=== PATIENT | female | born 1945 | race Caucasian/White ===

== ENCOUNTER → 2019-10-11 12:47 | Outpatient (CLI) | payer MEDICARE, OTHER, SELFPAY ==
--- NOTE | 2019-10-11 12:48 | MR_ITS ---
PROCEDURE: MR HEAD/BRAIN WO CON CLINICAL INDICATION: memory loss, amnesia MEMORY LOSS [id number]. NO PRIOR. COMPARISON: No exams were available for comparison TECHNIQUE: Routine multiplanar multi echo sequences are performed without gadolinium enhancement. FINDINGS: No midline shift, mass effect, intracranial hemorrhage, hydrocephalus, acute infarction. The cerebellopontine angles, cerebellum, and brainstem an unremarkable. There is mild generalized atrophy. Nonspecific periventricular and subcortical T2 white matter hyperintensities are consistent with ischemic gliotic change from microvascular disease. These areas do not show restricted diffusion. There is mild prominence of the lateral ventricles which is felt be related to ex vacuo dilatation. The pituitary, optic chiasm, corpus callosum, and craniocervical junction have an unremarkable appearance. No mastoid effusion or sinus air-fluid level. IMPRESSION: 1. No acute intracranial findings. 2. Senescent changes atrophy with periventricular ischemic gliotic change Dictated b Pritesh Grissom MD 10/12/2019 14:15 Pritesh Grissom MD in [place] 10/12/2019 14:15
== END ==
PROVIDERS: PCP Family Medicine; Visit Provider Specialist
DX: E78.5 Hyperlipidemia, unspecified (principal); G93.40 Encephalopathy, unspecified; I10 Essential (primary) hypertension; R41.3 Other amnesia
CPT/HCPCS: 70551

== ENCOUNTER → 2019-10-27 08:07 | Outpatient (CLI) | payer MEDICARE, OTHER, SELFPAY ==
[2019-10-27 08:11] LABS: MANUAL DIFFERENTIAL MANUAL DIFFERENTIAL (MANUAL DIFF)
[2019-10-27 09:20] LABS: Basophils # 0.1 K/mm3 (0-0.2); Basophils % 0.8 % (0.1-2.0); Eosinophils # 0.3 K/mm3 (0.0-0.4); Eosinophils % 3.5 % (0.1-12.0); Hematocrit 41.6 % (37.0-47.0); Hemoglobin 14.2 g/dL (12.2-16.2); Lymphocytes # 2.3 K/mm3 (0.7-4.5); Lymphocytes % 28.4 % (10-50); Mean Corpuscular HGB Conc 34.2 g/dL (31.8-35.4); Mean Corpuscular Hemoglobin 30.3 pg (27.0-31.2); Mean Corpuscular Volume 88.4 fl (81-99); Mean Platelet Volume 7.2 fl (7.4-10.4); Monocytes # 0.5 K/mm3 (0.1-1.0); Monocytes % 5.9 % (1.7-9.3); Neutrophils % 61.3 % (37.0-80.0); Platelet Count 410 K/mm3 (142-424); Red Cell Distribution Width 13.2 % (11.5-17.5); White Blood Count 8.1 K/mm3 (4.8-10.8)
[2019-10-27 09:22] LABS: Chloride 101 mmol/L (98-107); Potassium 4.3 mmoL/L (3.5-5.1); Sodium 140 mmol/L (136-145)
[2019-10-27 10:11] LABS: Alanine Aminotransferase 13 U/L (12-78); Albumin Level 4.1 g/dl (3.5-5.0); Albumin/Globulin Ratio 1.2 (1.1-1.8); Alkaline Phosphatase 101 U/L (38-126); Anion Gap 12.3 mEq/L (5-15); Aspartate Amino Transferase 29 U/L (14-36); Bilirubin,Total 0.6 mg/dl (0.2-1.3); Blood Urea Nitrogen 13 mg/dl (7-17); Calcium 9.8 mg/dl (8.4-10.2); Carbon Dioxide 31 mmol/L (22.0-30.0); Estimated Glomerular Filt Rate 70 ml/min (>60); GFR (African American) 85 ML/MIN (>60); Globulin 3.4 g/dL (1.3-3.2); Glucose 96 mg/dl (74-100); Total Protein,Serum 7.5 g/dl (6.3-8.2)
[2019-10-27 10:37] LABS: Eosinophils % 2 % (0-3); Lymphocytes % 36 % (10-50); Monocytes % 3 % (2-9); Neutrophils % 59 % (42-76); Total Cells Counted 100
[2019-10-27 10:38] LABS: Platelet Estimate Normal; RBC Morphology Normal
[2019-10-27 11:18] LABS: Folate 9.78 ng/mL; Vitamin B12 309 pg/mL
[2019-10-27 11:46] LABS: Erythrocyte Sedimentation Rate 49 mm/hr (0-30)
[2019-10-28 13:11] LABS: Rapid Plasma Reagin Ab Titer Non Reactive (NonRea<1:1)
[2019-10-30 11:59] LABS: Anti-Centromere B Antibodies <0.2 AI (0.0-0.9); Anti-Jo-1 <0.2 AI (0.0-0.9); Anti-Smith Antibody <0.2 AI (0.0-0.9); Antichromatin Antibodies <0.2 AI (0.0-0.9); Antiscleroderma-70 Antibodies <0.2 AI (0.0-0.9); RNP Antibodies <0.2 AI (0.0-0.9); Sjogren's Anti-SS-A <0.2 AI (0.0-0.9); Sjogren's Anti-SS-B <0.2 AI (0.0-0.9)
[2019-10-30 13:20] LABS: Anti-DNA (DS) Ab Qn <1 IU/mL (0-9)
== END ==
PROVIDERS: Visit Provider Specialist
DX: E78.5 Hyperlipidemia, unspecified (principal); G93.40 Encephalopathy, unspecified; I10 Essential (primary) hypertension; R41.3 Other amnesia
CPT/HCPCS: 36415; 80053; 82607; 82746; 84443; 85007; 85014; 85018; 85048; 85049; 85651; 86225; 86235; 86592

== ENCOUNTER 2021-04-01 14:40 | Emergency (ER) | payer MEDICARE, OTHER, SELFPAY ==
[2021-04-01 14:41] VITALS: BP 142/74; PULSE 68; RESP 16; TEMP 36.9; O2SAT 92; BMI 26.5
--- NOTE | 2021-04-01 14:44 | ECG_ITS ---
APPROVED REPORT Exam: Resting ECG HR:62 bpm ECG Measurements Heart Rate 62 AXES ME 144 P 46 QRSd 85 QRS 49 QT 459 T 42 QTc 464 Conclusion SINUS RHYTHM NORMAL ECG UNCONFIRMED REPORT Electronically signed by : Guanakito Muhammad MD 04/01/2021 16:23:59
--- NOTE | 2021-04-01 14:48 | CT_ITS ---
FINAL REPORT CLINICAL HISTORY: ams FINDINGS: Axial images of the head were obtained without contrast. Coronal reformatted images were also obtained. This study was performed with techniques to keep radiation doses as low as reasonably achievable (ALARA). Individualized dose reduction techniques using automated exposure control or adjustment of mA and/or kV according to the patient's size were employed. There is generalized age-appropriate atrophy. Periventricular low-attenuation areas are seen consistent with moderate chronic ischemic changes. There is ventriculomegaly consistent with the degree of atrophy. There is no evidence of intracranial hemorrhage or mass. There is no evidence of acute infarct. There is no evidence of shift of the midline structures. No skull abnormality is seen on the bone window images. IMPRESSION: Atrophy and moderate periventricular chronic ischemic changes. No acute intracranial abnormality identified. Reviewed, Interpreted and Dictated by Uche Key III, MD Transcribed by Isael Molina Authenticated by Uche Key III, MD on 04/01/2021 04:09:32 PM [facility]
--- NOTE | 2021-04-01 14:58 | HMH.EDGENADL ---
ED Disposition Clinical Impression: Confusion Fatigue Qualifiers: Fatigue type: unspecified Qualified Code(s): R53.83 - Other fatigue Disposition: Home, Self-Care Condition on Discharge: Good Instructions: DI for Altered Mental Status Additional Instructions: follow up pcp, return for worse Referrals: Scott Rosales MD [Primary Care Provider] - - Critical Care Critical Care Time: No Attestation: On 04/01/21, the high probability of a clinically significant, sudden or life threatening deterioration of the following system(s) required my full and direct attention, intervention and personal management. The time I documented below is in addition to time spent performing reported procedures but includes the following listed in this critical care notation. Medical Decision Making - Medical Records Medical records reviewed: Yes: I reviewed the patient's medical records. - Davion Inquiry Pt receiving controlled substance: No Vital Signs: 04/01/21 14:41 Temperature 98.5 F Temperature Source Oral Pulse Rate [Left Radial] 68 Respiratory Rate 16 Blood Pressure [Right Arm] 142/74 H Blood Pressure Mean [Right Arm] 96 Blood Pressure Source [Right Arm] Automatic Cuff Blood Pressure Position [Right Arm] Sitting 02 Sat by Pulse Oximetry 92 L Oxygen Delivery Method Room Air - Lab Data Lab Results 04/01/21 14:47: Urine Color Yellow, Urine Appearance Clear, Urine pH 5.5, Ur Specific [place] 1.025, Urine Protein Trace, Urine Glucose (UA) Negative, Urine Ketones Negative, Urine Blood Negative, Urine Nitrate Negative, Urine Bilirubin Negative, Urine Urobilinogen 1.0, Ur Leukocyte Esterase Negative, Urine RBC None, Urine WBC None, Ur Squamous Epith Cells None, Urine Bacteria Trace 04/01/21 14:47: WBC 7.9, RBC 4.74, Hgb 14.0, Hct 43.0, MCV 90.8, MCH 29.5, MCHC 32.5, RDW 13.3, Plt Count 275, MPV 8.5, Neut % (Auto) 71.0, Lymph % (Auto) 18.3, Callahan % (Auto) 9.5 H, Eos % (Auto) 0.2, Baso % (Auto) 1.1, Neut # (Auto) 5.6, Lymph # (Auto) 1.4, Callahan # (Auto) 0.8, Eos # (Auto) 0.0, Baso # (Auto) 0.1 04/01/21 14:47: Sodium 130 L, Potassium 3.3 L, Chloride 99, Carbon Dioxide 27, Anion Gap 7.3, BUN 31 H, Creatinine 1.20 H, Estimated Creat Clear 44, Estimated GFR 44 L, Est GFR ( Amer) 53 L, Glucose 97, Calcium 8.0 L, Total Bilirubin 0.5, AST 52 H, ALT 23, Alkaline Phosphatase 98, Total Protein 6.4, Albumin 3.3 L, Globulin 3.1, Albumin/Globulin Ratio 1.1 Result diagrams: 04/01/21 14:47 04/01/21 14:47 Orders (Tests/Meds): ED MEDICATIONS Discontinued Medications Generic Name Dose Route Start Last Admin Trade Name Freq PRN Reason Stop Dose Admin Sodium Chloride 1,000 mls @ 999 mls/hr 04/01/21 15:00 04/01/21 15:49 Sod Chlor 0.9% 1000ml Bag IV 04/01/21 16:00 999 mls/hr .Q1H1M JOAQUIN Administration Potassium Chloride 40 meq 04/01/21 16:04 Potassium Chloride 20meq Tab PO 04/01/21 16:05 ONCE ONE Medical Decision Narrative: ekg by me nsr, qrs nml, no st elev General Adult HPI - General Chief complaint: Altered Mental Status Stated complaint: lethargic, no appetite Time Seen by Provider: 04/01/21 14:59 Mode of Arrival: EMS Limitations: Altered Mental Status Description of Symptoms (Recalled from ER Triage Doc. by RN): c/o confusion, lethargic not eating or drinking for a few days per family - History of Present Illness HPI narrative: general weakness and confusion in be several days Radiation: non-radiation Severity: moderate Consistency: constant Relieving factors: none Exacerbating factors: none Associated symptoms: denies other symptoms - Related Data Home Medications Medication Instructions Recorded Confirmed acetaminophen 325 mg capsule 325 mg PO QID PRN 10/04/19 11/11/20 hydrochlorothiazide 12.5 mg capsule 12.5 mg PO DAILY 10/04/19 11/11/20 losartan 100 mg tablet 100 mg PO DAILY 10/04/19 11/11/20 metoprolol succinate 200 mg 200 mg PO DAILY 10/04/19 11/11/20 capsule sprinkl
--- NOTE | 2021-04-01 15:04 | PC.NURSE ---
patient to CT with cardio tech
[2021-04-01 15:15] LABS: Microscopic, Urine URINE MICROSCOPIC (MICROSCOPIC)
[2021-04-01 15:17] LABS: Appearance,Urine CLEAR (Clear); Bilirubin,Urine Negative (Negative); Blood, Urine Negative (Negative); Color,Urine YELLOW (Yellow); Glucose,Urine (UA) Negative (Negative); Ketones,Urine Negative (Negative); Leukocyte Esterase,Urine Negative (Negative); Nitrate,Urine Negative (Negative); PH,Urine 5.5 (5.0-8.5); Protein,Urine TRACE (Negative); Specific Gravity, Urine 1.025 (1.005-1.030)
[2021-04-01 15:18] LABS: Basophils # 0.1 K/mm3 (0-0.2); Basophils % 1.1 % (0.1-2.0); Chloride 99 mmol/L (98-107); Eosinophils % 0.2 % (0.1-12.0); Lymphocytes # 1.4 K/mm3 (0.7-4.5); Lymphocytes % 18.3 % (10-50); Mean Corpuscular HGB Conc 32.5 g/dL (31.8-35.4); Mean Corpuscular Hemoglobin 29.5 pg (27.0-31.2); Mean Corpuscular Volume 90.8 fl (81-99); Mean Platelet Volume 8.5 fl (7.4-10.4); Monocytes # 0.8 K/mm3 (0.1-1.0); Monocytes % 9.5 % (1.7-9.3); Neutrophils # 5.6 K/mm3 (1.8-7.8); Platelet Count 275 K/mm3 (142-424); Potassium 3.3 mmoL/L (3.5-5.1); Red Blood Count 4.74 M/mm3 (4.20-5.40); Red Cell Distribution Width 13.3 % (11.5-17.5); Sodium 130 mmol/L (136-145); White Blood Count 7.9 K/mm3 (4.8-10.8)
[2021-04-01 15:20] LABS: Alanine Aminotransferase 23 U/L (12-78); Aspartate Amino Transferase 52 U/L (14-36); Blood Urea Nitrogen 31 mg/dl (7-17); Creatinine Clearance Estimated 44 mL/min (50-200); Estimated Glomerular Filt Rate 44 ml/min (>60); GFR (African American) 53 ML/MIN (>60)
[2021-04-01 15:21] LABS: Albumin Level 3.3 g/dl (3.5-5.0); Albumin/Globulin Ratio 1.1 (1.1-1.8); Alkaline Phosphatase 98 U/L (38-126); Anion Gap 7.3 mEq/L (5-15); Bilirubin,Total 0.5 mg/dl (0.2-1.3); Carbon Dioxide 27 mmol/L (22.0-30.0); Globulin 3.1 g/dL (1.3-3.2); Glucose 97 mg/dl (74-100); Total Protein,Serum 6.4 g/dl (6.3-8.2)
[2021-04-01 15:38] LABS: Bacteria,Urine Trace /lpf
[2021-04-01 17:59] VITALS: BP 138/71; PULSE 61; RESP 16; TEMP 36.9; O2SAT 94
== END 2021-04-01 18:34 | disposition home or self-care (01) ==
PROVIDERS: Emergency Provider Emergency Medicine; PCP Family Medicine
DX: R53.83 Other fatigue (principal); Z79.899 Other long term (current) drug therapy
CPT/HCPCS: 70450; 80053; 81001; 85025; 93005; 96365; 99283

== ENCOUNTER → 2021-06-18 13:33 | Outpatient (CLI) | payer MEDICARE, OTHER, SELFPAY ==
--- NOTE | 2021-06-18 13:33 | MR_ITS ---
FINAL REPORT CLINICAL HISTORY: encephalopathy best images possible due to patient being very agitated during scan 12ml prohance given FINDINGS: Multiplanar MR imaging of the brain was performed without and with contrast. Motion on many of the images decreases exam sensitivity. There is mild age-appropriate atrophy. Scattered foci of increased T2 signal are seen in the cerebral white matter that have a nonspecific appearance but likely represent moderate chronic ischemic/gliotic changes. There is no evidence of intracranial hemorrhage or mass. There is mild ventriculomegaly. . There is no evidence of shift of the midline structures. No abnormal extra-axial fluid collection is seen. No area of abnormal restricted diffusion is identified. The posterior fossa and brainstem have an unremarkable appearance. No abnormal contrast enhancement is seen. Normal major vessel vascular flow voids are seen. IMPRESSION: Mild ventriculomegaly. Atrophy with moderate chronic ischemic/gliotic changes. No acute intracranial abnormality. Reviewed, Interpreted and Dictated by Uche Key III, MD Transcribed by Isael Molina Authenticated by Uche Key III, MD on 06/18/2021 04:25:02 PM [facility]
--- NOTE | 2021-06-18 13:33 | MR_ITS ---
FINAL REPORT CLINICAL HISTORY: abnormal reflexes, imbalance FINDINGS: Multiplanar MR imaging of the cervical spine was performed without contrast. Motion on many of the images decreases exam sensitivity. On the sagittal T2-weighted images, disc degeneration is seen throughout. There is no evidence of fracture. The vertebral alignment is normal. The cervical spinal cord has an unremarkable appearance without evidence of mass, edema or syrinx. The cervicomedullary junction is normal. C2-3: There is no significant canal stenosis or neural foraminal narrowing. C3-4: An annular bulge is present. There are left uncovertebral osteophytes. There is severe left neural foraminal narrowing. C4-5: There is a disc osteophyte complex with a small central disc protrusion. There is moderate left neural foraminal narrowing. There is mild central canal stenosis with an AP thecal sac diameter of 8 mm. C5-6: There is a disc osteophyte complex with a left foraminal disc protrusion. There is moderate left neural foraminal narrowing. C6-7: There is a disc osteophyte complex with moderate left neural foraminal narrowing. C7-T1: There is no significant canal stenosis or neural foraminal narrowing. T1-T2: There is no significant canal stenosis or neural foraminal narrowing. IMPRESSION: Multilevel degenerative disc disease with areas of neural foraminal narrowing and central canal stenosis as described. Disc protrusions at C4-C5 and C5-C6. Reviewed, Interpreted and Dictated by Uche Key III, MD Transcribed by Isael Molina Authenticated by Uche Key III, MD on 06/18/2021 04:25:01 PM [facility]
[2021-06-18 14:16] LABS: Blood Urea Nitrogen 15 mg/dl (7-17); Estimated Glomerular Filt Rate 61 ml/min (>60); GFR (African American) 74 ML/MIN (>60)
[2021-06-18 14:47] LABS: Thyroid Stimulating Hormone 2.07 uIU/mL (0.465-4.68)
[2021-06-18 15:23] LABS: Vitamin B12 312 pg/mL (239-931)
== END ==
PROVIDERS: PCP Family Medicine; Visit Provider Nurse Practitioner Family
DX: G93.40 Encephalopathy, unspecified (principal); R26.89 Other abnormalities of gait and mobility; R29.2 Abnormal reflex; R41.89 Other symptoms and signs involving cognitive functions and awareness; F03.90 Unspecified dementia, unspecified severity, without behavioral disturbance, psychotic disturbance, mood disturbance, and anxiety
CPT/HCPCS: 36415; 70553; 72141; 76376; 82565; 82607; 82746; 84443; 84520; A9576

== ENCOUNTER → 2021-06-20 12:34 | Outpatient (CLI) | payer MEDICARE, OTHER, SELFPAY | PROVIDERS: PCP Family Medicine; Visit Provider Nurse Practitioner Family | DX: G93.40 Encephalopathy, unspecified (principal); R41.0 Disorientation, unspecified | CPT/HCPCS: 95816 ==

== ENCOUNTER 2021-10-22 11:04 | Emergency (ER) | payer MEDICARE, OTHER, SELFPAY ==
[2021-10-22] VITALS (12 sets, daily range): BP systolic 98–173; BP diastolic 47–79; PULSE 56–97; RESP 9–18; TEMP 36.9–37.1; O2SAT 91–96; BMI 31.2
--- NOTE | 2021-10-22 11:27 | ECG_ITS ---
APPROVED REPORT Exam: Resting ECG HR:61 bpm ECG Measurements Heart Rate 61 AXES NM 146 P 32 QRSd 86 QRS 49 QT 445 T 56 QTc 448 Conclusion SINUS RHYTHM NORMAL ECG UNCONFIRMED REPORT Electronically signed by : Guanakito Muhammad MD 10/25/2021 08:12:17
--- NOTE | 2021-10-22 11:30 | XR_ITS ---
FINAL REPORT CLINICAL HISTORY: weakness, lethargy FINDINGS: The heart size is normal. The mediastinum is normal. The lungs are underinflated. There is scarring or atelectasis at the right lung base. There are no pleural effusions. There is no pneumothorax. There is no osseous abnormality. IMPRESSION: Underinflated lungs with scarring or atelectasis at the right lung base. Reviewed, Interpreted and Dictated by Phil Land MD Transcribed by Raven Vasques Authenticated and [facility]
[2021-10-22 11:37] LABS: Influenza A, PCR Not Detected (NotDetected); Influenza B, PCR Not Detected (NotDetected)
[2021-10-22 11:43] LABS: Basophils # 0.2 K/mm3 (0-0.2); Basophils % 1.7 % (0.1-2.0); Eosinophils # 0.1 K/mm3 (0.0-0.4); Eosinophils % 1.2 % (0.1-12.0); Hematocrit 42.7 % (37.0-47.0); Lymphocytes # 2.2 K/mm3 (0.7-4.5); Lymphocytes % 23.9 % (10-50); Mean Corpuscular HGB Conc 32.8 g/dL (31.8-35.4); Mean Corpuscular Hemoglobin 30.2 pg (27.0-31.2); Mean Platelet Volume 8.2 fl (7.4-10.4); Monocytes % 11.4 % (1.7-9.3); Neutrophils # 5.6 K/mm3 (1.8-7.8); Neutrophils % 61.8 % (37.0-80.0); Platelet Count 354 K/mm3 (142-424); Red Blood Count 4.64 M/mm3 (4.20-5.40); Red Cell Distribution Width 12.8 % (11.5-17.5)
[2021-10-22 11:49] LABS: Alanine Aminotransferase 25 U/L (12-78); Albumin Level 3.7 g/dl (3.5-5.0); Alkaline Phosphatase 127 U/L (38-126); Anion Gap 10.6 mEq/L (5-15); Aspartate Amino Transferase 44 U/L (14-36); Blood Urea Nitrogen 16 mg/dl (7-17); Calcium 8.9 mg/dl (8.4-10.2); Carbon Dioxide 30 mmol/L (22.0-30.0); Chloride 100 mmol/L (98-107); Creatinine Clearance Estimated 43 mL/min (50-200); Estimated Glomerular Filt Rate 40 ml/min (>60); GFR (African American) 48 ML/MIN (>60); Globulin 3.6 g/dL (1.3-3.2); Glucose 125 mg/dl (74-100); Potassium 3.6 mmoL/L (3.5-5.1); Sodium 137 mmol/L (136-145); Total Protein,Serum 7.3 g/dl (6.3-8.2)
[2021-10-22 11:51] LABS: Bilirubin,Total 0.1 mg/dl (0.2-1.3)
[2021-10-22 12:04] LABS: Troponin I < 0.01 ng/ml (0.00-0.034)
[2021-10-22 12:34] LABS: Coronavirus 19, PCR Detected (NotDetected)
--- NOTE | 2021-10-22 14:40 | PC.NURSE ---
MARYSOL JOHN at
--- NOTE | 2021-10-22 14:42 | HMH.EDGENADL ---
Discharge Plan Disposition Patient Disposition: Home, Self-Care Condition: Good Chief Complaint: Weakness Prescriptions Prescriptions: New Paxlovid (EUA) 300 mg (150 mg x 2)-100 mg tablet See Rx Instructions .Route .COMPLEX Qty: 30 0RF Rx Instructions: take TWO 150 mg tablets of nirmatrelvir with ONE 100 mg tablet of ritonavir twice daily for 5 days No Action pravastatin 40 mg tablet 40 mg PO QHS acetaminophen [Tylenol] 325 mg capsule 325 mg PO QID PRN losartan 100 mg tablet 100 mg PO DAILY metoprolol succinate 200 mg capsule,sprinkle,ER 24hr 200 mg PO DAILY hydrochlorothiazide 12.5 mg capsule 12.5 mg PO DAILY memantine [Namenda] 10 mg tablet 10 mg PO BID Qty: 60 5RF donepezil 10 mg tablet 10 mg PO QHS Qty: 30 5RF Referrals Referrals: Scott Rosales MD [Primary Care Provider] - Enter time for follow up Activity Restrictions/Add. Instructions Additional Instructions/Restrictions: Paxlovid as prescribed. ADDITIONAL INSTRUCTIONS FOR COVID-19: Rest, drink plenty of fluids. Tylenol or Ibuprofen for fever and/or aches and pains. Monitor your symptoms. IF YOU HAVE AN EMERGENCY WARNING SIGN (INCLUDING TROUBLE BREATHING), SEEK EMERGENCY MEDICAL CARE IMMEDIATELY. COVID-19 Isolation: People with COVID-19 should isolate for 5 days. Then if they are asymptomatic (no symptoms) or their symptoms are resolving (without fever for 24 hours), follow that by 5 days of wearing a mask when around others to minimize the risk of infecting people you encounter. If you test positive for COVID-19 and never develop symptoms, day 0 is the day of your positive viral test (based on the date you were tested) and day 1 is the first full day after your positive test. If you develop symptoms after testing positive, your 5-day isolation period must start over. Day 0 is your first day of symptoms. Day 1 is the first full day after your symptoms developed. What to do: Stay in a separate room from other household members, if possible. Use a separate bathroom, if possible. Avoid contact with other members of the household and pets. Don?t share personal household items, like cups, towels, and utensils. Wear a mask when around other people if able. Clinical Impressions Clinical Impression: COVID-19 Instructions Patient Instructions: DI for COVID-19 (Suspected or Confirmed ) Discharge ED Provider: Reyes Romero General Adult HPI General Chief complaint: Weakness Stated complaint: lethargic, soa Time Seen by Provider: 10/22/21 14:42 Mode of Arrival: Ambulatory Source of Information: Patient Limitations: No Limitations Description of Symptoms (Recalled from ER Triage Doc. by RN): Pt c/o fatigue and weakness History of Present Illness HPI narrative: Patient has dementia and is a poor historian. She does not really know why she is here. She apparently was brought in by her granddaughter who also checked in as a patient. Reportedly she has fatigue and weakness. Patient is unable to give me any other specifics about her illness. Additional history obtained from patient's granddaughter. She states family members got COVID last week. Patient developed symptoms 2 days ago with cough. She suspected patient may have COVID. States she is not able to get into patient's primary care provider in a reasonable time and therefore brought her to the emergency department. Patient is not vaccinated against COVID. Related Data Home Medications Medication Instructions Recorded Confirmed acetaminophen 325 mg capsule 325 mg PO QID PRN 10/04/19 07/10/21 (Tylenol) hydrochlorothiazide 12.5 mg capsule 12.5 mg PO DAILY 10/04/19 07/10/21 losartan 100 mg tablet 100 mg PO DAILY 10/04/19 07/10/21 metoprolol succinate 200 mg 200 mg PO DAILY 10/04/19 07/10/21 capsule sprinkle, ext. release 24 hr pravastatin 40 mg tablet 40 mg PO QHS 10/04/19 07/10/21 Previous Rx's Medicatio
--- NOTE | 2021-10-22 14:54 | PC.NURSE ---
pt assisted to bathroom to help provide urine specimen
--- NOTE | 2021-10-22 14:57 | PC.NURSE ---
Urine sent to lab at this time.
[2021-10-22 15:03] LABS: Microscopic, Urine URINE MICROSCOPIC (MICROSCOPIC)
[2021-10-22 15:04] LABS: Appearance,Urine CLEAR (Clear); Bilirubin,Urine Negative (Negative); Blood, Urine Negative (Negative); Color,Urine YELLOW (Yellow); Glucose,Urine (UA) Negative (Negative); Ketones,Urine Negative (Negative); Leukocyte Esterase,Urine 3+ (Negative); Nitrate,Urine Negative (Negative); Protein,Urine Negative (Negative); Urobilinogen,Urine 0.2 EU/dl (0.2)
[2021-10-22 16:24] LABS: Troponin I < 0.01 ng/ml (0.00-0.034)
[2021-10-22 17:21] LABS: Bacteria,Urine 1+ /lpf; RBC,Urine Occasional #/hpf (0-3)
== END 2021-10-22 17:00 | disposition home or self-care (01) ==
PROVIDERS: Emergency Provider Emergency Medicine; PCP Family Medicine
DX: U07.1 COVID-19 (principal); N39.0 Urinary tract infection, site not specified
CPT/HCPCS: 71045; 80053; 81001; 84484; 85025; 87086; 87088; 87186; 93005; 96365; 99284; C9803; U0003; U0005

== ENCOUNTER 2021-12-15 12:33 | Emergency (ER) | payer MEDICARE, OTHER, SELFPAY ==
--- NOTE | 2021-12-15 13:42 | EXP.UTC ---
Discharge Plan Disposition Patient Disposition: Home, Self-Care Condition: Good Prescriptions Prescriptions: New sulfamethoxazole-trimethoprim [Bactrim DS] 800-160 mg Tablet 1 tab PO BID Qty: 14 0RF methylprednisolone 4 mg Tablets,Dose Pack 4 mg PO DIRECTED Qty: 21 0RF No Action pravastatin 40 mg tablet 40 mg PO QHS acetaminophen [Tylenol] 325 mg capsule 325 mg PO QID PRN losartan 100 mg tablet 100 mg PO DAILY metoprolol succinate 200 mg capsule,sprinkle,ER 24hr 200 mg PO DAILY hydrochlorothiazide 12.5 mg capsule 12.5 mg PO DAILY memantine [Namenda] 10 mg tablet 10 mg PO BID Qty: 60 5RF donepezil 10 mg tablet 10 mg PO QHS Qty: 30 5RF Paxlovid (EUA) 300 mg (150 mg x 2)-100 mg tablet See Rx Instructions .Route .COMPLEX Qty: 30 0RF Rx Instructions: take TWO 150 mg tablets of nirmatrelvir with ONE 100 mg tablet of ritonavir twice daily for 5 days Referrals Follow up/Referrals: Scott Rosales MD [Primary Care Provider] - See instructions Activity Restrictions/Add. Instructions Additional Instructions/Restrictions: Encourage her to drink plenty of fluids. Give her the medications as directed. Give her tylenol or ibuprofen for pain or fever. Follow up with her regular doctor. GO TO THE ER FOR ANY WORSENING SYMPTOMS Clinical Impressions Clinical Impression: UTI (urinary tract infection), Contact dermatitis Instructions Patient Instructions: Urinary Tract Infection, Urine Culture, DI for Urinary Tract Infection (UTI) Discharge ED Provider: Eulogio Obrien [facility] General Stated complaint: red spots on face and hands Time Seen by Provider: 12/15/21 13:42 History of Present Illness Provider Complaint: she has had dysuria and urinary frequency for the past 3 days. She has also had some red raised areas on her left forearm and the left side of her face. Related Data Home Medications Medication Instructions Recorded Confirmed acetaminophen 325 mg capsule 325 mg PO QID PRN 10/04/19 07/10/21 (Tylenol) hydrochlorothiazide 12.5 mg capsule 12.5 mg PO DAILY 10/04/19 07/10/21 losartan 100 mg tablet 100 mg PO DAILY 10/04/19 07/10/21 metoprolol succinate 200 mg 200 mg PO DAILY 10/04/19 07/10/21 capsule sprinkle, ext. release 24 hr pravastatin 40 mg tablet 40 mg PO QHS 10/04/19 07/10/21 Previous Rx's Medication Instructions Recorded donepezil 10 mg tablet 10 mg PO QHS #30 tabs 07/16/21 memantine 10 mg tablet (Namenda) 10 mg PO BID #60 tabs 07/16/21 nirmatrelvir 300 mg (150 mg See Rx Instructions .Route 10/22/21 x2)-ritonavir 100 mg tablet,dose .COMPLEX #30 tabs pack(EUA) (Paxlovid) methylprednisolone 4 mg tablets in 4 mg PO DIRECTED #21 tabs 12/15/21 a dose pack sulfamethoxazole 800 1 tab PO BID #14 tabs 12/15/21 mg-trimethoprim 160 mg tablet (Bactrim DS) Allergies Allergy/AdvReac Type Severity Reaction Status Date / Time No Known Allergies Allergy Verified 12/15/21 14:00 PFSH [facility] Social History Smoking Status: Never smoker alcohol intake: never substance use type: denies use current occupational status: retired Travel in the last 8 weeks: None household members: none housing: house ROS Obtained: Yes All systems reviewed & no additional complaints except as documented Constitutional Constitutional: Reports system reviewed and no additional complaints, except as documented, Denies chills and Denies fever(s) Eyes Eyes: Denies eye discharge ENT Ears, Nose, Mouth, and Throat: Denies dysphagia, Denies sore throat and Denies throat swelling Cardiovascular Cardiovascular: Denies chest pain and Denies dyspnea Respiratory Respiratory: Denies chest congestion, Denies cough and Denies dyspnea Gastrointestinal Gastrointestingal: Denies abdominal pain, constipation, diarrhea, dysphagia, nausea or vomiting Genitourinary Female Genitour
[2021-12-15 13:58] VITALS: BP 189/93; PULSE 74; RESP 17; TEMP 36.9; O2SAT 96; BMI 31.8
[2021-12-15 14:09] LABS: Apearance,Urine Clear (Clear); Color,Urine Yellow (Yellow)
[2021-12-15 14:10] LABS: Bilirubin,Urine Negative (Negative); Blood, Urine Trace (Negative); Glucose,Urine (UA) Negative (Negative); Ketones,Urine Negative (Negative); Protein,Urine Negative (Negative); Specific Gravity, Urine 1.015 (1.005-1.030); UTC Leukocyte Esterase,Urine 2+ (Negative); UTC Nitrate,Urine Negative (Negative); Urobilinogen,Urine 0.2 EU/dl (0.2)
[2021-12-15 14:12] VITALS: BP 189/93; PULSE 74; RESP 17; TEMP 36.9
== END 2021-12-15 14:12 | disposition home or self-care (01) ==
PROVIDERS: Emergency Provider Nurse Practitioner Family; PCP Family Medicine
DX: N39.0 Urinary tract infection, site not specified (principal); L25.9 Unspecified contact dermatitis, unspecified cause
CPT/HCPCS: 81003; 87086; 99212; G0463

== ENCOUNTER 2022-01-09 03:45 | Emergency (ER) | payer MEDICARE, OTHER, SELFPAY ==
--- NOTE | 2022-01-09 03:45 | ECG_ITS ---
APPROVED REPORT Exam: Resting ECG HR:59 bpm ECG Measurements Heart Rate 59 AXES NM 153 P 51 QRSd 85 QRS 38 QT 449 T 46 QTc 448 Conclusion SINUS BRADYCARDIA NONSPECIFIC ST & T-WAVE ABNORMALITY BORDERLINE ECG UNCONFIRMED REPORT Electronically signed by : Guanakito Muhammad MD 01/09/2022 19:59:55
[2022-01-09 03:51] VITALS: BP 171/76; PULSE 60; RESP 15; TEMP 36.8; O2SAT 98; BMI 32.8
--- NOTE | 2022-01-09 03:57 | XR_ITS ---
PROCEDURE INFORMATION: Exam: XR Chest Exam date and time: 01/09/2022 4:38 AM Age: 76 years old Clinical indication: Sternal or substernal pain; Additional info: Chest pain TECHNIQUE: Imaging protocol: Radiologic exam of the chest. Views: 1 view. COMPARISON: CR XR CHEST PORTABLE 10/22/2021 11:47 AM FINDINGS: Lungs: Unremarkable. No consolidation. Pleural spaces: Unremarkable. No pleural effusion. No pneumothorax. Heart/Mediastinum: Unremarkable. No cardiomegaly. Bones/joints: Unremarkable. IMPRESSION: No acute findings.
--- NOTE | 2022-01-09 03:57 | CT_ITS ---
PROCEDURE INFORMATION: Exam: CT Head Without Contrast Exam date and time: 01/09/2022 5:17 AM Age: 76 years old Clinical indication: Altered mental status/memory loss; Additional info: AMS TECHNIQUE: Imaging protocol: Computed tomography of the head without contrast. Radiation optimization: All CT scans at this facility use at least one of these dose optimization techniques: automated exposure control; mA and/or kV adjustment per patient size (includes targeted exams where dose is matched to clinical indication); or iterative reconstruction. COMPARISON: MR HEAD/BRAIN WO/W CON 06/18/2021 1:57 PM FINDINGS: Brain: There is diffuse prominence of the cerebral sulci, cisterns, and ventricles consistent with atrophy. No intra or extra-axial fluid collections are noted. No mass or mass effect is seen. Periventricular white matter hypoattenuation is seen consistent with small vessel chronic ischemic changes. Cerebral ventricles: No ventriculomegaly. Paranasal sinuses: Visualized sinuses are unremarkable. No fluid levels. Mastoid air cells: Visualized mastoid air cells are well aerated. Bones/joints: Unremarkable. No acute fracture. Soft tissues: Unremarkable. IMPRESSION: No acute process noted.
[2022-01-09 04:00] VITALS: BP 132/59; PULSE 61; RESP 18; O2SAT 98
--- NOTE | 2022-01-09 04:02 | PC.NURSE ---
Verbal orders received from
[2022-01-09 04:05] LABS: Microscopic, Urine URINE MICROSCOPIC (MICROSCOPIC)
[2022-01-09 04:05] LABS: Coronavirus 19, PCR Not Detected (NotDetected); Influenza A, PCR Not Detected (NotDetected); Influenza B, PCR Not Detected (NotDetected)
[2022-01-09 04:07] LABS: Basophils # 0.2 K/mm3 (0-0.2); Basophils % 2.2 % (0.1-2.0); Eosinophils # 0.5 K/mm3 (0.0-0.4); Eosinophils % 4.4 % (0.1-12.0); Hematocrit 42.2 % (37.0-47.0); Hemoglobin 14.1 g/dL (12.2-16.2); Lymphocytes % 28.1 % (10-50); Mean Corpuscular HGB Conc 33.4 g/dL (31.8-35.4); Mean Corpuscular Hemoglobin 29.9 pg (27.0-31.2); Mean Corpuscular Volume 89.7 fl (81-99); Mean Platelet Volume 7.9 fl (7.4-10.4); Monocytes # 1.1 K/mm3 (0.1-1.0); Monocytes % 10.6 % (1.7-9.3); Neutrophils # 5.8 K/mm3 (1.8-7.8); Neutrophils % 54.6 % (37.0-80.0); Platelet Count 324 K/mm3 (142-424); Red Cell Distribution Width 13.4 % (11.5-17.5); White Blood Count 10.6 K/mm3 (4.8-10.8)
[2022-01-09 04:07] LABS: Appearance,Urine CLEAR (Clear); Bilirubin,Urine Negative (Negative); Blood, Urine Negative (Negative); Color,Urine YELLOW (Yellow); Glucose,Urine (UA) Negative (Negative); Ketones,Urine Negative (Negative); Leukocyte Esterase,Urine TRACE (Negative); Nitrate,Urine Negative (Negative); Protein,Urine Negative (Negative); Specific Gravity, Urine <= 1.005 (1.005-1.030); Urobilinogen,Urine 0.2 EU/dl (0.2)
[2022-01-09 04:08] LABS: Chloride 99 mmol/L (98-107); Sodium 138 mmol/L (136-145)
[2022-01-09 04:11] LABS: Alanine Aminotransferase 19 U/L (12-78); Albumin Level 3.6 g/dl (3.5-5.0); Albumin/Globulin Ratio 1.2 (1.1-1.8); Alkaline Phosphatase 124 U/L (38-126); Aspartate Amino Transferase 32 U/L (14-36); Bilirubin,Total 0.3 mg/dl (0.2-1.3); Blood Urea Nitrogen 9 mg/dl (7-17); Calcium 9.3 mg/dl (8.4-10.2); Carbon Dioxide 31 mmol/L (22.0-30.0); Creatinine Clearance Estimated 63 mL/min (50-200); Estimated Glomerular Filt Rate 54 ml/min (>60); GFR (African American) 65 ML/MIN (>60); Globulin 2.9 g/dL (1.3-3.2); Glucose 106 mg/dl (74-100); Total Protein,Serum 6.5 g/dl (6.3-8.2)
--- NOTE | 2022-01-09 04:17 | PC.NURSE ---
Dr. Vázquez notified a critical potassium
[2022-01-09 04:19] LABS: Barbiturates Screen,Urine Negative ng/ml (<200); Benzodiazepines Screen,Urine Negative ng/ml (<200)
[2022-01-09 04:20] LABS: Amphetamine/Metha Screen,Urine Negative ng/ml (<1000)
[2022-01-09 04:21] LABS: Bacteria,Urine Trace /lpf; Methadone Screen,Urine Negative ng/ml (<300); WBC,Urine Occasional #/hpf (0-3)
[2022-01-09 04:22] LABS: Cannabinoid Screen,Urine Negative ng/ml (<50)
[2022-01-09 04:23] LABS: Cocaine Screen,Urine Negative ng/ml (<300); Opiate Screen,Urine Negative ng/ml (<300)
[2022-01-09 04:24] LABS: Phencyclidine Screen,Urine Negative ng/ml (<25)
[2022-01-09 04:27] LABS: Troponin I < 0.01 ng/ml (0.00-0.034)
--- NOTE | 2022-01-09 04:27 | HMH.EDAMS ---
Discharge Plan Disposition Patient Disposition: Home, Self-Care Chief Complaint: Altered Mental Status Prescriptions Prescriptions: No Action pravastatin 40 mg tablet 40 mg PO QHS acetaminophen [Tylenol] 325 mg capsule 325 mg PO QID PRN (Reason: Pain) losartan 100 mg tablet 100 mg PO DAILY metoprolol succinate 200 mg capsule,sprinkle,ER 24hr 200 mg PO DAILY hydrochlorothiazide 12.5 mg capsule 12.5 mg PO DAILY donepezil 10 mg tablet 10 mg PO QHS memantine [Namenda] 10 mg tablet 10 mg PO BID Referrals Follow up/Referrals: Scott Rosales MD [Primary Care Provider] - See instructions Clinical Impressions Clinical Impression: Altered mental status Instructions Patient Instructions: DI for Altered Mental Status Discharge ED Provider: Maco Vázquez Altered Mental Status HPI General Chief Complaint: Altered Mental Status Stated Complaint: possible stroke Time Seen by Provider: 01/09/22 04:05 Mode of Arrival: Family Vehicle Source of Information: Patient and Medical Record Limitations: Altered Mental Status Description of Symptoms (Recalled from ER Triage Doc. by RN): pt presents to ed per family for evaluation of initially was called in to be stroke-like symptoms. upon questioning family member staff was informed that the man she lives with called me to come bring her to the er because she was 'acting' like she did when she had a stroke before . The driver/sales workers reports that the patient was slightly slurring her words and acting like she didn't know where she was . Patient correctly stated her name and , [facility] , however couldn't identify exactly how to correctly spell her name or identify the cause behind which she was here. Seemingly able to follow most commands, states her left arma nd chest is currently hurting. Will not describe any other symptoms beyond these. History of Present Illness HPI narrative: reported change in mental status but at baseline - has hx of memory loss and anxiety ashley at night - no fever/rash or trauma complaint: altered mental status Onset (ago): hour(s) Timing confirmed by: caregiver Severity: moderate Consistency of symptoms: waxing and waning Context: history of similar presentation and other (memory loss) Associated symptoms: denies other symptoms Related Data Home Medications Medication Instructions Recorded Confirmed acetaminophen 325 mg capsule 325 mg PO QID PRN Pain 10/04/19 01/09/22 (Tylenol) hydrochlorothiazide 12.5 mg capsule 12.5 mg PO DAILY High blood 10/04/19 01/09/22 pressure losartan 100 mg tablet 100 mg PO DAILY High blood pressure 10/04/19 01/09/22 metoprolol succinate 200 mg 200 mg PO DAILY High blood pressure 10/04/19 01/09/22 capsule sprinkle, ext. release 24 hr pravastatin 40 mg tablet 40 mg PO QHS High cholesterol 10/04/19 01/09/22 donepezil 10 mg tablet 10 mg PO QHS memory 01/09/22 01/09/22 memantine 10 mg tablet (Namenda) 10 mg PO BID memory 01/09/22 01/09/22 Allergies Allergy/AdvReac Type Severity Reaction Status Date / Time No Known Allergies Allergy Verified 12/15/21 14:00 [facility] Social History Smoking Status: Unknown if ever smoked alcohol intake: never substance use type: denies use current occupational status: retired Travel in the last 8 weeks: None household members: none housing: house ROS Obtained: Yes unobtainable due to mental status Physical Exam General General appearance: alert and in no apparent distress Head Head exam: normocephalic Eye Eye exam: Present PERRL and EOMI ENT ENT exam: Present mucous membranes moist Neck Neck exam: Present trachea midline Respiratory Respiratory exam: Present normal lung sounds bilaterally; Absent respiratory distress Cardiovascular Cardiovascular exam: Present regular rate, systolic murmur and +S4 Abdominal Exam Abdominal ex
[2022-01-09 04:30] VITALS: PULSE 59; RESP 16; O2SAT 95
[2022-01-09 04:57] LABS: NT Pro Brain Natriuretic Pep. 968 pg/mL (0-450)
[2022-01-09 05:01] VITALS: BP 126/52; PULSE 60; RESP 15
[2022-01-09 05:30] VITALS: BP 124/49; PULSE 58; RESP 15
[2022-01-09 05:45] VITALS: BP 123/75; PULSE 59; RESP 17; TEMP 36.9; O2SAT 99
== END 2022-01-09 06:21 | disposition home or self-care (01) ==
PROVIDERS: Emergency Provider Emergency Medicine; PCP Family Medicine
DX: R41.82 Altered mental status, unspecified (principal); R47.81 Slurred speech; Z79.899 Other long term (current) drug therapy
CPT/HCPCS: 70450; 71045; 80053; 80305; 81001; 83880; 84484; 85025; 93005; 99285; C9803; U0003; U0005

== ENCOUNTER 2022-01-27 14:12 | Emergency (ER) | payer MEDICARE, OTHER, SELFPAY ==
--- NOTE | 2022-01-27 16:01 | EXP.UTC ---
Discharge Plan Disposition Patient Disposition: Home, Self-Care Condition: Good Prescriptions Prescriptions: New methylprednisolone 4 mg Tablets,Dose Pack 4 mg PO DIRECTED Qty: 21 0RF No Action pravastatin 40 mg tablet 40 mg PO QHS acetaminophen [Tylenol] 325 mg capsule 325 mg PO QID PRN (Reason: Pain) losartan 100 mg tablet 100 mg PO DAILY metoprolol succinate 200 mg capsule,sprinkle,ER 24hr 200 mg PO DAILY hydrochlorothiazide 12.5 mg capsule 12.5 mg PO DAILY donepezil 10 mg tablet 10 mg PO QHS memantine [Namenda] 10 mg tablet 10 mg PO BID Referrals Follow up/Referrals: Scott Rosales MD [Primary Care Provider] - See instructions Activity Restrictions/Add. Instructions Additional Instructions/Restrictions: Don't put the topical steroids (triamcinolone) on your face or your groin. education supervisor the medications that you physician called in. I added some steroids to this. Follow up with your regular doctor. GO TO THE ER FOR ANY WORSENING SYMPTOMS OR CONCERNS Clinical Impressions Clinical Impression: Cellulitis, Contact dermatitis Instructions Patient Instructions: Cellulitis, DI for Contact Dermatitis Discharge ED Provider: Eulogio Obrien [facility] HPI General Stated complaint: Loss of voice, cough, rash RT shoulder Time Seen by Provider: 01/27/22 16:01 History of Present Illness Provider Complaint: She states that she has a red area on her right shoulder. She denies any injury. She denies any fever or chills. Related Data Home Medications Medication Instructions Recorded Confirmed acetaminophen 325 mg capsule 325 mg PO QID PRN Pain 10/04/19 01/09/22 (Tylenol) hydrochlorothiazide 12.5 mg capsule 12.5 mg PO DAILY High blood 10/04/19 01/09/22 pressure losartan 100 mg tablet 100 mg PO DAILY High blood pressure 10/04/19 01/09/22 metoprolol succinate 200 mg 200 mg PO DAILY High blood pressure 10/04/19 01/09/22 capsule sprinkle, ext. release 24 hr pravastatin 40 mg tablet 40 mg PO QHS High cholesterol 10/04/19 01/09/22 donepezil 10 mg tablet 10 mg PO QHS memory 01/09/22 01/09/22 memantine 10 mg tablet (Namenda) 10 mg PO BID memory 01/09/22 01/09/22 Previous Rx's Medication Instructions Recorded methylprednisolone 4 mg tablets in 4 mg PO DIRECTED #21 tabs 01/27/22 a dose pack Allergies Allergy/AdvReac Type Severity Reaction Status Date / Time No Known Allergies Allergy Verified 01/27/22 16:17 [facility] Social History Smoking Status: Unknown if ever smoked alcohol intake: never substance use type: denies use current occupational status: retired Travel in the last 8 weeks: None household members: none housing: house ROS Obtained: Yes All systems reviewed & no additional complaints except as documented Constitutional Constitutional: Denies chills and Denies fever(s) Eyes Eyes: Denies eye discharge ENT Ears, Nose, Mouth, and Throat: Denies dizziness, Denies otalgia and Denies sore throat Cardiovascular Cardiovascular: Denies chest pain Respiratory Respiratory: Denies shortness of breath, Denies chest congestion, Denies cough, Denies stridor and Denies wheezing Gastrointestinal Gastrointestingal: Denies nausea or vomiting Musculoskeletal Musculoskeletal: Reports system reviewed and no additional complaints, except as documented and Denies arthralgias Integumentary/Breasts Skin/Breast: Reports as per HPI and Reports rash Neurologic Neurologic: Denies dizziness and Denies paresthesias Allergic/Immunologic Allergic/Immunologic: Denies wheezing Physical Exam General General appearance: alert and in no apparent distress Head Head exam: atraumatic, normocephalic and normal inspection Eye Eye exam: Present normal appearance, PERRL and EOMI ENT ENT exam: Present normal exam, normal oropharynx, mucous membranes moist, TM's normal bilaterally and
[2022-01-27 16:13] VITALS: BP 184/78; PULSE 60; RESP 18; TEMP 36.6; O2SAT 97; BMI 25.3
[2022-01-27 17:09] VITALS: BP 184/78; PULSE 60; RESP 18; TEMP 36.6
== END 2022-01-27 17:10 | disposition home or self-care (01) ==
PROVIDERS: Emergency Provider Nurse Practitioner Family; PCP Family Medicine
DX: L03.113 Cellulitis of right upper limb (principal); R21 Rash and other nonspecific skin eruption; R49.1 Aphonia; Z79.52 Long term (current) use of systemic steroids; Z79.899 Other long term (current) drug therapy
CPT/HCPCS: 99213; G0463

== ENCOUNTER 2022-12-27 13:29 | Emergency (ER) | payer MEDICARE, OTHER, SELFPAY ==
[2022-12-27] VITALS (7 sets, daily range): BP systolic 146–184; BP diastolic 66–119; PULSE 55–77; RESP 11–20; TEMP 36.7–36.9; O2SAT 93–100; BMI 26.6
--- NOTE | 2022-12-27 13:30 | ECG_ITS ---
APPROVED REPORT Exam: Resting ECG HR:59 bpm ECG Measurements Heart Rate 59 AXES FL 135 P 21 QRSd 86 QRS 64 QT 440 T 72 QTc 439 Conclusion SINUS BRADYCARDIA BORDERLINE ECG UNCONFIRMED REPORT Electronically signed by : Guanakito Muhammad MD 12/28/2022 20:26:15
--- NOTE | 2022-12-27 13:46 | CT_ITS ---
PROCEDURE INFORMATION: Exam: CT Abdomen And Pelvis With Contrast Exam date and time: 12/27/2022 2:53 PM Age: 77 years old Clinical indication: Abdominal pain; Additional info: Abd pain TECHNIQUE: Imaging protocol: Computed tomography of the abdomen and pelvis with contrast. Radiation optimization: All CT scans at this facility use at least one of these dose optimization techniques: automated exposure control; mA and/or kV adjustment per patient size (includes targeted exams where dose is matched to clinical indication); or iterative reconstruction. Contrast material: ISOVUE; Contrast volume: 75 ml; Contrast route: IV; REPORTING DATA: Count of CT and Cardiac NM exams in prior 12 months: This patient has received [address] and 0 known cardiac nuclear medicine studies in the 12 months prior to the current study. COMPARISON: CR XR CHEST PORTABLE 01/09/2022 4:38 AM FINDINGS: Liver: No focal liver lesions. Gallbladder and bile ducts: Unremarkable. Pancreas: Atrophic pancreas. No evidence of acute pancreatitis. Spleen: Round, slightly complex 1.5 cm splenic lesion, indeterminate. No splenomegaly. Adrenal glands: Unremarkable. Kidneys and ureters: Unremarkable. Stomach and bowel: Colonic diverticulosis without evidence of acute diverticulitis. Appendix: No evidence of appendicitis. Intraperitoneal space: No free fluid. No pneumoperitoneum. Vasculature: Moderate amount of calcific arterial atherosclerosis throughout the aorta. Infrarenal abdominal aortic ectasia measuring up to 2.4 cm in diameter. No abdominal aortic aneurysm. Lymph nodes: Unremarkable. Urinary bladder: Decompressed urinary bladder with severely thickened bladder wall and mucosal hyperenhancement. Reproductive: Simple appearing right adnexal cyst measuring 1.8 cm in maximal dimension. Bones/joints: No evidence of acute osseous abnormality. Soft tissues: Benign-appearing intramuscular lipoma incidentally noted in the lower right anterior abdominal wall. IMPRESSION: 1. Decompressed urinary bladder with severely thickened bladder wall and mucosal hyperenhancement. Findings are suggestive of acute cystitis. Bladder wall neoplasm not excluded. 2. Round, slightly complex 1.5 cm splenic lesion, indeterminate. Please see comments below for current guidelines. 3. Colonic diverticulosis without evidence of acute diverticulitis. 4. Additional non-acute ancillary findings are detailed above. COMMENTS: 1. No follow-up imaging is recommended for simple ovarian/adnexal cysts <3 cm in postmenopausal women per current guidelines. (Vane et al 2019). 2. Regarding incidental splenic lesions with indeterminate imaging features (and no prior imaging to confirm stability), current guidelines recommend for patients with cancer history to pursue follow-up MRI in 6 and 12 months for lesions <1.0 cm in size, or prompt evaluation with PET-CT vs MRI vs biopsy for >1.0 cm lesions. For indeterminate splenic lesions in patients with no cancer history, guidelines recommend follow-up MRI in 6 and 12 months. For incidental splenic lesions with suspicious imaging features, guidelines recommend prompt evaluation with PET-CT vs MRI vs biopsy for all patients. (Reference: Laz) REFERENCES: 1. Vane Gallego, Petr JOHN, Lucrecia RIVERA, et al. Simple Adnexal Cysts: U Consensus Conference Update on Follow-up and Reporting. Radiology. 2019;293(2):359-371. Link: [email or web address] 2. Gab Nesbitt, et al. Managing incidental findings on abdominal and pelvic CT and MRI, part 3: white paper of the ACR Incidental Findings Committee II on splenic and [place] findings. Journal of the [employer] 10.11 (2013): 833-839. Electronically signed
--- NOTE | 2022-12-27 13:46 | XR_ITS ---
PROCEDURE INFORMATION: Exam: XR Chest Exam date and time: 12/27/2022 3:16 PM Age: 77 years old Clinical indication: Pain; Chest pressure; Additional info: Cp TECHNIQUE: Imaging protocol: Radiologic exam of the chest. Views: 1 view. COMPARISON: CR XR CHEST PORTABLE 01/09/2022 4:38 AM FINDINGS: Lungs: Subsegmental atelectasis vs airspace disease in the left lung base. No pulmonary edema. Pleural spaces: No large pleural effusion. No pneumothorax. Heart/Mediastinum: Cardiomediastinal silhouette is unchanged from prior exam, accounting for differences in technique. Prominent central venous structures suggestive of increased intravascular volume vs increased right heart pressures. Bones/joints: No evidence of acute osseous abnormality. IMPRESSION: 1. Subsegmental atelectasis vs airspace disease in the left lung base. 2. Prominent central venous structures suggestive of increased intravascular volume vs increased right heart pressures.
--- NOTE | 2022-12-27 13:48 | HMH.EDGENADL ---
Discharge Plan Disposition Patient Disposition: Home, Self-Care Prescriptions Prescriptions: New cefdinir 300 mg capsule 300 mg PO BID 10 Days Qty: 20 0RF No Action quetiapine 25 mg tablet 25 mg PO BID Patient Comments: TAKE ONE TABLET BY MOUTH EVERY EVENING furosemide 20 mg tablet 20 mg PO DAILY potassium chloride 10 mEq capsule, extended release 10 meq PO DAILY metoprolol succinate 200 mg tablet extended release 24 hr 200 mg PO DAILY Patient Comments: TAKE ONE TABLET BY MOUTH EVERY DAY pravastatin 40 mg tablet 40 mg PO QHS memantine [Namenda] 10 mg tablet 10 mg PO BID Referrals Follow up/Referrals: Gab Blunt MD [Staff Physician] - See instructions Provider,MD Kellie [Referring] - See instructions Activity Restrictions/Add. Instructions Additional Instructions/Restrictions: At this time it was felt you are safe to be discharged home. If new or worsening symptoms please do not hesitate to return the emergency department. Please follow-up with your family doctor early next week for rechecking kidney function and monitoring of urinary tract infection. There was an incidental spot found on the spleen. It is likely benign but needs to be monitored by your family doctor. Please call and schedule an appointment with Dr. Blunt as you are able to have a heart evaluation. Clinical Impressions Clinical Impression: Acute UTI, Chest pain, Lesion of spleen, Creatinine elevation Discharge ED Provider: Karel Morris General Adult HPI <Tiffany Gale MD - Last Filed: 12/27/22 17:01> General Chief complaint: Chest Pain Stated complaint: CP Time Seen by Provider: 12/27/22 13:39 History of Present Illness HPI narrative: This 77-year-old female with a history of dementia presents to the emergency department with concerns of chest pain, abdominal pain. Reportedly patient started complaining of chest pain and left arm pain earlier this morning. Patient's die equipment operator is here with her and provides history. She states that she was also complaining of abdominal pain though she has not had any nausea, vomiting, or diarrhea. Energy And Sustainability Manager does state that over the last 4 to 5 days she has noticed lower extremity swelling which is new. Patient does not take a water pill. No other abnormal symptoms or complaints at this time. Patient does not contribute to the history. Related Data Home Medications Medication Instructions Recorded Confirmed pravastatin 40 mg tablet 40 mg PO QHS High cholesterol 10/04/19 10/14/22 memantine 10 mg tablet (Namenda) 10 mg PO BID memory 01/09/22 10/14/22 furosemide 20 mg tablet 20 mg PO DAILY 10/14/22 10/14/22 metoprolol succinate 200 mg 200 mg PO DAILY 10/14/22 10/14/22 tablet,extended release 24 hr potassium chloride 10 mEq 10 meq PO DAILY 10/14/22 10/14/22 capsule,extended release quetiapine 25 mg tablet 25 mg PO BID 10/14/22 10/14/22 Previous Rx's Medication Instructions Recorded cefdinir 300 mg capsule 300 mg PO BID 10 days #20 caps 12/27/22 Allergies Allergy/AdvReac Type Severity Reaction Status Date / Time No Known Allergies Allergy Verified 10/14/22 13:16 PFSH <Tiffany Gale MD - Last Filed: 12/27/22 17:01> PFS Disclaimer: The information contained in this section may have been updated after the patient was seen, as this information can be updated by other users. Social History Smoking Status: Former smoker alcohol intake: never substance use type: denies use current occupational status: retired Travel in the last 8 weeks: None household members: none housing: house <Tiffany Gale MD - Last Filed: 12/27/22 17:01> ROS Obtained: Yes All systems reviewed & no additional complaints except as documented Constitutional Constitutional: Denies chills, Denies fever(s), Denies headache(s) and Denies weakness Eyes Eyes: Denies change in visi
[2022-12-27 14:14] LABS: Basophils # 0.1 K/mm3 (0-0.2); Basophils % 0.7 % (0.1-2.0); Eosinophils # 0.4 K/mm3 (0.0-0.4); Eosinophils % 3.6 % (0.1-12.0); Hematocrit 43.2 % (37.0-47.0); Hemoglobin 14.9 g/dL (12.2-16.2); Lymphocytes # 3.2 K/mm3 (0.7-4.5); Lymphocytes % 26.5 % (10-50); Mean Corpuscular HGB Conc 34.4 g/dL (31.8-35.4); Mean Corpuscular Volume 90.2 fl (81-99); Mean Platelet Volume 8.8 fl (7.4-10.4); Monocytes # 0.9 K/mm3 (0.1-1.0); Monocytes % 7.3 % (1.7-9.3); Neutrophils # 7.5 K/mm3 (1.8-7.8); Neutrophils % 61.9 % (37.0-80.0); Platelet Count 378 K/mm3 (142-424); Red Blood Count 4.79 M/mm3 (4.20-5.40); White Blood Count 12.1 K/mm3 (4.8-10.8)
[2022-12-27 14:16] LABS: Chloride 103 mmol/L (98-107)
[2022-12-27 14:17] LABS: Potassium 4.7 mmoL/L (3.5-5.1); Sodium 141 mmol/L (136-145)
[2022-12-27 14:19] LABS: Alanine Aminotransferase 19 U/L (12-78); Alkaline Phosphatase 119 U/L (38-126); Aspartate Amino Transferase 38 U/L (14-36); Bilirubin,Total 0.5 mg/dl (0.2-1.3); Blood Urea Nitrogen 20 mg/dl (7-17); Creatinine Clearance Estimated 39 mL/min (50-200); Estimated Glomerular Filt Rate 36 ml/min (>60); GFR (African American) 44 ML/MIN (>60)
[2022-12-27 14:20] LABS: Albumin Level 4.1 g/dl (3.5-5.0); Anion Gap 10.7 mEq/L (5-15); Calcium 9.2 mg/dl (8.4-10.2); Carbon Dioxide 32 mmol/L (22.0-30.0); Glucose 101 mg/dl (74-100); Total Protein,Serum 8.1 g/dl (6.3-8.2)
--- NOTE | 2022-12-27 14:25 | PC.NURSE ---
rad called asking if pt could get fluids due to her GFR beind 36 stated pt is in fluid overload and she would sign paper to go head with Scans for pt
[2022-12-27 14:29] LABS: NT Pro Brain Natriuretic Pep. 1620 pg/mL (0-450)
[2022-12-27 14:36] LABS: Microscopic, Urine URINE MICROSCOPIC (MICROSCOPIC)
[2022-12-27 14:38] LABS: Appearance,Urine CLEAR (Clear); Bilirubin,Urine Negative (Negative); Blood, Urine 2+ (Negative); Color,Urine YELLOW (Yellow); Glucose,Urine (UA) Negative (Negative); Ketones,Urine Negative (Negative); Leukocyte Esterase,Urine 1+ (Negative); Nitrate,Urine Negative (Negative); Protein,Urine 2+ (Negative); Specific Gravity, Urine 1.025 (1.005-1.030)
[2022-12-27 14:39] LABS: Troponin I < 0.01 ng/ml (0.00-0.034)
[2022-12-27 14:54] LABS: Bacteria,Urine 1+ /lpf; Squamous Epithelial Cell,Urine Occasional #/hpf (0-5)
[2022-12-27 17:13] LABS: Troponin I < 0.01 ng/ml (0.00-0.034)
== END 2022-12-27 17:56 | disposition home or self-care (01) ==
PROVIDERS: Emergency Medicine; Emergency Provider Emergency Medicine; PCP Family Medicine
DX: R07.9 Chest pain, unspecified (principal); N39.0 Urinary tract infection, site not specified; R00.1 Bradycardia, unspecified; D73.89 Other diseases of spleen; R79.89 Other specified abnormal findings of blood chemistry; R60.0 Localized edema; Z87.891 Personal history of nicotine dependence
CPT/HCPCS: 71045; 74177; 80053; 81001; 83880; 84484; 85025; 87086; 93005; 96365; 99285; J0696; Q9967

== ENCOUNTER → 2023-02-02 11:14 | Outpatient (CLI) | payer MEDICARE, OTHER, SELFPAY ==
[2023-02-02 12:04] LABS: Alanine Aminotransferase 21 U/L (12-78); Albumin Level 3.8 g/dl (3.5-5.0); Alkaline Phosphatase 175 U/L (38-126); Anion Gap 14.3 mEq/L (5-15); Aspartate Amino Transferase 30 U/L (14-36); Bilirubin,Direct 0.2 mg/dl (0.0-0.4); Bilirubin,Indirect 0.2 mg/dL (0.0-0.9); Bilirubin,Total 0.4 mg/dl (0.2-1.3); Bilirubin,Unconjugated 0.3 mg/dL (0.0-1.1); Blood Urea Nitrogen 26 mg/dl (7-17); Calcium 8.8 mg/dl (8.4-10.2); Carbon Dioxide 25 mmol/L (22.0-30.0); Chloride 102 mmol/L (98-107); Chol/HDL Ratio 6.6 (1-3.5); Cholesterol 190 mg/dl (140-200); Estimated Glomerular Filt Rate 40 ml/min (>60); GFR (African American) 48 ML/MIN (>60); Glucose 105 mg/dl (74-100); HDL Cholesterol 29 mg/dl (40-60); Potassium 4.3 mmoL/L (3.5-5.1); Sodium 137 mmol/L (136-145); Total Protein,Serum 7.5 g/dl (6.3-8.2); Triglycerides 217 mg/dl (30-150); VLDL Cholesterol 43 mg/dL (0-40)
[2023-02-02 12:08] LABS: Basophils # 0.1 K/mm3 (0-0.2); Basophils % 0.5 % (0.1-2.0); Eosinophils # 0.7 K/mm3 (0.0-0.4); Eosinophils % 4.5 % (0.1-12.0); Hematocrit 44.7 % (37.0-47.0); Hemoglobin 15.1 g/dL (12.2-16.2); Lymphocytes % 24.9 % (10-50); Mean Corpuscular HGB Conc 33.8 g/dL (31.8-35.4); Mean Corpuscular Hemoglobin 30.8 pg (27.0-31.2); Mean Corpuscular Volume 91.2 fl (81-99); Mean Platelet Volume 8.5 fl (7.4-10.4); Monocytes % 6.1 % (1.7-9.3); Neutrophils # 10.2 K/mm3 (1.8-7.8); Neutrophils % 63.9 % (37.0-80.0); Platelet Count 526 K/mm3 (142-424); Red Cell Distribution Width 12.9 % (11.5-17.5)
[2023-02-02 12:13] LABS: Creatine Kinase < 20 U/L (30-135)
[2023-02-02 12:16] LABS: C-Reactive Protein 18.8 mg/L (0-4); Direct LDL Cholesterol 119.82 mg/dL (100-129); MANUAL DIFFERENTIAL MANUAL DIFFERENTIAL (MANUAL DIFF)
[2023-02-02 12:37] LABS: Thyroid Stimulating Hormone 3.21 uIU/mL (0.465-4.68)
[2023-02-02 12:47] LABS: Erythrocyte Sedimentation Rate 16 mm/hr (0-30)
[2023-02-02 14:21] LABS: Eosinophils % 3 % (0-3); Lymphocytes % 30 % (10-50); Monocytes % 5 % (2-9); Neutrophils % 62 % (42-76); Total Cells Counted 100
[2023-02-02 14:22] LABS: Platelet Estimate Moderate Increase; RBC Morphology Normal
[2023-02-03 12:27] LABS: Anti-Centromere B Antibodies <0.2 AI (0.0-0.9); Anti-DNA (DS) Ab Qn <1 IU/mL (0-9); Anti-Jo-1 <0.2 AI (0.0-0.9); Anti-Smith Antibody <0.2 AI (0.0-0.9); Antichromatin Antibodies <0.2 AI (0.0-0.9); Antiscleroderma-70 Antibodies <0.2 AI (0.0-0.9); RNP Antibodies 0.2 AI (0.0-0.9); Sjogren's Anti-SS-A <0.2 AI (0.0-0.9); Sjogren's Anti-SS-B <0.2 AI (0.0-0.9)
== END ==
PROVIDERS: PCP Family Medicine; Visit Provider Internal Medicine
DX: R07.9 Chest pain, unspecified; I25.10 Atherosclerotic heart disease of native coronary artery without angina pectoris; R42 Dizziness and giddiness; R60.0 Localized edema
CPT/HCPCS: 36415; 80048; 80061; 80076; 82550; 83735; 84439; 84443; 85007; 85025; 85651; 86140; 86225; 86235; 93225

== ENCOUNTER → 2023-02-12 06:24 | Outpatient (CLI) | payer MEDICARE, OTHER, SELFPAY ==
--- NOTE | 2023-02-12 | CA_ITS ---
APPROVED REPORT Exam: Pharmacologic Technologist: Lillie Santos, Ht: 5 ft 3 in Wt: 123 lbs BSA: 1.57 m2 HR: 51 bpm BP: 184/59 mmHg Rhythm: NSR Medical History Medical History: HTN, Hyperlipidemia Medications: Pravastatin,,,,, Losartan,,,,, Cefdinir,,,,, DONEPEZIL,,,,, Quetiapine,,,,, MeMANTINE,,,,, Metoprolol Succinate ER,,,,, Allergies: No known drug allergies Cardiac Risk Factors: HTN, Hyperlipidemia Stress Test Details Test: LEXISCAN HR Resting HR: 55 bpm Max Heart Rate (APMHR): 143 bpm Max HR Achieved: 93 bpm Target HR (85% APMHR): 122 bpm % of APMHR: 65 Recovery HR: 80 bpm BP Resting BP: 184/59 mmHg Max BP: 184/59 mmHg Recovery BP: 145.0/67.0 mmHg ECG Resting ECG: Sinus bradycardia, nonspecific ST changes at baseline Stress ECG: No significant ST changes Arrhythmia: None Clinical Exercise duration: 04:05 min Highest Stage Achieved: Exercise capacity: 1.0 METs Stress ECG Conclusion The patient developed diffuse bodyaches following Lexiscan administration. Ectopy: None ST changes: None Conclusion: Unremarkable Lexiscan stress test. Myoview images are reported separately. Test Summary REST 07:26 . . 55 . 184/ 59 . . Stage 1 01:00 . . 63 . . . . Stage 2 01:00 . . 85 . . . . Stage 3 01:00 . . 83 . . . . Stage 4 01:00 . . 86 . 125/ 65 . . Stage 4 01:05 . . 91 . 147/ 57 . Stop exercise at 04:05 RECOVERY 01:00 . . 82 . . . . RECOVERY 02:00 . . 87 . 155/ 56 . . RECOVERY 03:00 . . 82 . 153/ 58 . . RECOVERY 04:00 . . 81 . 153/ 58 . . RECOVERY 05:00 . . 86 . 153/ 58 . . RECOVERY 05:21 . . 81 . 145/ 67 . . Electronically signed by : Leela Cruz MD 02/16/2023 12:48:35
--- NOTE | 2023-02-12 06:24 | CA_ITS ---
APPROVED REPORT EXAM: Comprehensive 2D, Doppler, and color-flow Echocardiogram Molecular Biology Director: Jailene Shelby, RT(R) Ht: 5 ft 3 in Wt: 123lbs BSA: 1.57 BP: 148/78 mmHg Indications: CAD, SOB, dementia, patient refused testing, limited exam. Moved throughout exam and demanded stove installer stop numerous times. bradycardia, coronary calcification seen on CT. 2D Dimensions LVOT 1.99 cm (M/F) 1.5-2.5 LV Diastology E Decel Time 233 (160-240 msec) E/A Ratio 0.7 MED E' 3.8 (>= 7 cm/sec) E'/MED E' Ratio 15.79 (<= 14) LAT E' 3.9 (>= 10 cm/sec) E/LAT E' Ratio 15.38 (<= 14) Mitral Valve MV E Max Reggie. 60.0 (40-130 cm/s) MV A Velocity 87.0 (40-130 cm/s) E/A Ratio 0.69 MV Decel. Time 233 (160-240 ms) Left Ventricle The left ventricle is normal size. The left ventricular systolic function is normal. The left ventricular ejection fraction is within the normal range. There is increased LV wall thickness. Assessment of LV wall motion is limited due to technically difficult study. Diastolic function is indeterminate. LVEF is 65-70% Right Ventricle The right ventricle is not well-visualized. Atria The left atrium appears mildly dilated. The right atrium is not well-visualized. Aortic Valve The aortic valve is not well-visualized. Mitral Valve The mitral valve leaflets are mildly thickened. No evidence of mitral valve stenosis. No mitral regurgitation. Tricuspid Valve The tricuspid valve leaflets are not well-visualized. Pulmonic Valve The pulmonic valve is not well-visualized. Great Vessels The aortic root is not well-visualized. The IVC is not well-visualized. Pericardium There is no pericardial effusion. Other Information Study Quality: Technically Difficult. Technically limited study due to inability to position patient. Conclusion Technically difficult and limited study due to poor acoustic windows and patient desire to terminate the exam early. Normal LV systolic function. The right ventricle is not well-visualized. No significant MR or MS. The remaining valves are not well-visualized. Electronically signed by : Leela Cruz MD 02/21/2023 20:23:43
--- NOTE | 2023-02-12 06:28 | NM_ITS ---
APPROVED REPORT Exam: Nuclear Stress Test Indication: chest pain..fatigue Patient Location: Outpatient Stress Tech: Lillie Santos [place] Tech:Concha Merino ANOOP RT(R)(N) Ht: 4 ft 7 in Wt: 123 lbs Bra Size: 36dd HR: 55 bpm BP: 184/59 mmHg BSA: 1.43 m2 Rhythm: NSR TID: 0.68 BMI: 28.5 History: chest pain..fatigue Procedure: Patient received 0.4 mg of intravenous Lexiscan, resting heart rate 55 bpm, resting blood pressure 184/59 mmHg, with Lexiscan maximum heart rate achieved was 93 bpm which is 85 % of the maximum predicted heart rate and blood pressure was 184/59 mmHg. With Lexiscan, patient denied any complaint of chest pain. The patient was not able to lay on her abdomen for prone images Cardiac Stress and Resting SPECT Images: Cardiac Stress and Resting SPECT images were obtained using technetium 99m Myoview 31.0 mCi stress and 10.82 mCi at rest. Technically difficult study due to small cardiac size in the setting of small BSA, as well as significant soft tissue overlap on raw images. Also, the patient was unable to lie on her abdomen. Therefore prone stress imaging could not be performed. This may affect the diagnostic interpretation of the study findings. Resting and stress imaging in supine position demonstrate a large sized, moderate partially reversible perfusion defect in the inferior LV wall from the base and extending distally involving the LV apex. Gated imaging demonstrates normal global LV systolic function. There is mild hypokinesis of the basal inferior LV wall. LVEF is > 75%. Conclusion: Technically difficult study. Large sized, moderate partially reversible perfusion defect in the inferior LV wall from the base and extending distally involving the LV apex. Findings are suggestive of partial reversible ischemia. Gated imaging demonstrates normal global LV systolic function. There is mild hypokinesis of the basal inferior LV wall. LVEF is > 75%. Electronically signed by : Leela Cruz MD 02/16/2023 12:52:12
== END ==
PROVIDERS: PCP Family Medicine; Visit Provider Internal Medicine
DX: R07.9 Chest pain, unspecified (principal)
CPT/HCPCS: 78452; 93017; 93018; 93306; A9502; J2785

== ENCOUNTER 2023-03-24 08:38 | Day surgery (SDC) | payer MEDICARE, OTHER, SELFPAY ==
[2023-03-24] VITALS (9 sets, daily range): BP systolic 111–154; BP diastolic 57–76; PULSE 52–87; RESP 15–20; TEMP 36.1–36.4; O2SAT 95–97; BMI 19.3
--- NOTE | 2023-03-24 07:13 | IR_ITS ---
APPROVED REPORT Patient Location: Outpatient PROCEDURES Selective coronary angiogram Drug-eluting stent deployment to the distal left main artery Drug-eluting stent deployment to the proximal and mid LAD Drug-eluting stent deployment to the proximal mid and distal dominant right coronary artery in a contiguous manner INDICATION Coronary artery disease, History of dementia making patient a noncoronary artery bypass surgery candidate, Accelerated angina pectoris, Abnormal Myoview Informed consent was obtained prior to the procedure. COMPLICATIONS NONE Estimated Blood Loss: LESS THAN 10 ML TECHNIQUE One percent lidocaine used to anesthetize the right anterior aspect of the wrist. The right radial artery was accessed via the Seldinger technique. A 6 Swazi sheath was placed in the right radial artery. 2.5 mg of Verapamil, 800 mcg of nitroglycerin, 1mg Lidocaine and 5000 U Heparin were given through the arterial sheath. The papa catheter was also used to perform selective coronary angiogram. At the end of the diagnostic procedure therapeutic heparin was administered giving a therapeutic ACT and the guide catheter was placed in left main artery followed by Choice PT extra-support wire placed down the LAD. A 3.5 x 26 mm Sorin frontier stent was deployed in the proximal left main artery extending into the proximal LAD and deployed at 20 christiane. An additional 2.75 x 38 mm Sorin frontier stent was placed distal to the stent is still overlapping it and deployed into the mid LAD at 20 christiane. The balloon was brought back and deployed at 24 christiane to post dilate. A 4 mm x 12 mm noncompliant balloon was then advanced to the distal left main artery and deployed at 24 christiane. The balloon was brought into the LAD and deployed at 20 christiane in the proximal segment and then advanced and deployed at 6 christiane in the midportion as well as 14 christiane in the mid to proximal segment. Excellent angiographic results were obtained. After achieving excellent angiographic results and MIRELA-3 flow before and after the procedure the apparatus was removed from the left main artery and placed in the right coronary artery. A Choice PT extra-support wire was placed distally in the right coronary. Two 3 mm x 38 mm [place] frontier stents were placed in the proximal mid and distal segment in an overlapping fashion and deployed at 20 and 24 christiane. This reduced the critical disease giving excellent angiograph results. MIRELA-3 flow was present before and after the procedure. At the end of procedure the apparatus was removed the sheath was removed good hemostasis was achieved using TR banding patient was transferred to the postop putting in stable condition ANGIOGRAPHIC RESULTS The left main artery Has a distal greater than 50% stenosis The left anterior descending artery Has proximal 50% stenosis with mid vessel 80% and 90% stenosis. The circumflex artery Is nondominant yet still a large vessel gives rise to a large obtuse marginal artery which has a mid vessel 80% mostly eccentric stenosis The right coronary artery Is a large dominant vessel and has proximal 80% mixed ending and a 90% mid vessel stenosis. There is an additional distal 90% and 40 to 50% stenoses. IMPRESSION Severe three-vessel coronary disease as described above Successful stenting of the left main artery reducing the severe distal stenosis to less than 10% Successful stenting the proximal and mid LAD severe disease reduced to 0% with 2 contiguous drug-eluting stents Successful reconstruction of the dominant right coronary artery severe disease reduced to 0% with 2 contiguous drug-eluting stents Persistent severe stenosis in a large first obtuse marginal artery which should be managed medically at this time PLAN 1. Dual antiplatelet therapy 2. Take rehabilitation if patient is capable of physically performing 3. LDL less than 55 to achieve that high intensity statin 4. Avoidance of tobacco products 5. Risk factor modification Electronically signed by : Gab Blunt MD 03/25/2023 12:18:22
[2023-03-24 09:35] LABS: Basophils # 0.1 K/mm3 (0-0.2); Eosinophils # 0.5 K/mm3 (0.0-0.4); Eosinophils % 3.4 % (0.1-12.0); Hematocrit 39.9 % (37.0-47.0); Hemoglobin 13.8 g/dL (12.2-16.2); Lymphocytes # 3.1 K/mm3 (0.7-4.5); Lymphocytes % 20.8 % (10-50); Mean Corpuscular HGB Conc 34.5 g/dL (31.8-35.4); Mean Corpuscular Hemoglobin 31.4 pg (27.0-31.2); Mean Platelet Volume 8.1 fl (7.4-10.4); Monocytes # 0.8 K/mm3 (0.1-1.0); Monocytes % 5.7 % (1.7-9.3); Neutrophils # 10.3 K/mm3 (1.8-7.8); Neutrophils % 69.3 % (37.0-80.0); Platelet Count 406 K/mm3 (142-424); Red Blood Count 4.39 M/mm3 (4.20-5.40); Red Cell Distribution Width 13.5 % (11.5-17.5); White Blood Count 14.8 K/mm3 (4.8-10.8)
[2023-03-24 10:13] LABS: Anion Gap 12.9 mEq/L (5-15); Blood Urea Nitrogen 21 mg/dl (7-17); Calcium 8.5 mg/dl (8.4-10.2); Carbon Dioxide 25 mmol/L (22.0-30.0); Chloride 103 mmol/L (98-107); Creatinine Clearance Estimated 31 mL/min (50-200); Estimated Glomerular Filt Rate 44 ml/min (>60); GFR (African American) 53 ML/MIN (>60); Glucose 85 mg/dl (74-100); Potassium 3.9 mmoL/L (3.5-5.1); Sodium 137 mmol/L (136-145)
[2023-03-24] MEDS: NITROGLYCERIN 800MCG/8ML SYR (CATH LAB) 800 MCG IA (11:28)
[2023-03-24] MEDS: diphenhydrAMINE 50MG/ML VIAL 50 MG IV (11:28)
[2023-03-24] MEDS: HEPARIN 1,000 UNITS/500ML NS (CATH LAB) 3000 UNIT IV (11:28)
[2023-03-24] MEDS: VERAPAMIL 2.5MG/ML 2ML VIAL 2.5 MG IV (11:28)
[2023-03-24] MEDS: LIDOCAINE 1% 10ML MDV 20 ML IJ (11:28)
[2023-03-24] MEDS: 0.9 % SODIUM CHLORIDE 500 ML 25 ML IV (11:28)
[2023-03-24] MEDS: MIDAZOLAM HCL 1MG/1ML 5ML VIAL 1 MG IV (12:11)
[2023-03-24] MEDS: HEPARIN 1,000 UNITS/ML 10ML VIAL (CATH LAB) 10000 UNIT IV (12:11)
[2023-03-24] MEDS: FENTANYL 100MCG/2ML VIAL 50 MCG IV (12:12)
[2023-03-24] MEDS: IOPAMIDOL-370 (76%);100ML BOTTLE 95 ML IV (12:35)
[2023-03-24 12:38] LABS: CATHL Activated Clotting Time > 400 SEC (74-125)
--- NOTE | 2023-03-24 20:53 | SUR.PHASEII ---
03/24/23 1500- notified care management regarding patient condition, bedsore noted on patient right buttock. Son-poa stated that appointment in place for wound care.
== END 2023-03-24 15:17 | disposition home or self-care (01) ==
PROVIDERS: PCP Family Medicine; Visit Provider Internal Medicine
DX: I25.118 Atherosclerotic heart disease of native coronary artery with other forms of angina pectoris (principal); R94.39 Abnormal result of other cardiovascular function study; Z87.891 Personal history of nicotine dependence; Z79.899 Other long term (current) drug therapy; F03.918 Unspecified dementia, unspecified severity, with other behavioral disturbance
CPT/HCPCS: 80048; 85025; 85347; 92928; 93454; 99152; 99153; C1725; C1769; C1874; C1876; C9600; J1644; Q9967

== ENCOUNTER 2023-03-30 09:55 | Outpatient (CLI) | payer MEDICARE, OTHER, SELFPAY ==
[2023-03-30 10:54] LABS: Basophils # 0.1 K/mm3 (0-0.2); Basophils % 1.1 % (0.1-2.0); Eosinophils # 0.6 K/mm3 (0.0-0.4); Eosinophils % 4.9 % (0.1-12.0); Hematocrit 37.5 % (37.0-47.0); Hemoglobin 13.4 g/dL (12.2-16.2); Lymphocytes # 2.3 K/mm3 (0.7-4.5); Lymphocytes % 19.5 % (10-50); Mean Corpuscular HGB Conc 35.8 g/dL (31.8-35.4); Mean Corpuscular Hemoglobin 32.5 pg (27.0-31.2); Mean Corpuscular Volume 90.8 fl (81-99); Mean Platelet Volume 7.7 fl (7.4-10.4); Monocytes # 0.7 K/mm3 (0.1-1.0); Monocytes % 5.7 % (1.7-9.3); Neutrophils # 8.1 K/mm3 (1.8-7.8); Neutrophils % 68.8 % (37.0-80.0); Platelet Count 440 K/mm3 (142-424); Red Blood Count 4.13 M/mm3 (4.20-5.40); Red Cell Distribution Width 13.4 % (11.5-17.5); White Blood Count 11.7 K/mm3 (4.8-10.8)
[2023-03-30 11:00] LABS: Chloride 105 mmol/L (98-107)
[2023-03-30 11:01] LABS: Potassium 4.5 mmoL/L (3.5-5.1); Sodium 134 mmol/L (136-145)
[2023-03-30 11:03] LABS: Blood Urea Nitrogen 14 mg/dl (7-17); Estimated Glomerular Filt Rate 48 ml/min (>60); GFR (African American) 58 ML/MIN (>60)
[2023-03-30 11:04] LABS: Anion Gap 9.5 mEq/L (5-15); Calcium 8.6 mg/dl (8.4-10.2); Carbon Dioxide 24 mmol/L (22.0-30.0); Glucose 105 mg/dl (74-100)
== END 2023-03-30 23:59 ==
LOC: LAB 09:57
PROVIDERS: PCP Family Medicine; Visit Provider Internal Medicine
DX: I25.10 Atherosclerotic heart disease of native coronary artery without angina pectoris (principal); Z95.5 Presence of coronary angioplasty implant and graft
CPT/HCPCS: 36415; 80048; 85025

== ENCOUNTER 2023-03-31 11:45 | Outpatient (CLI) | payer MEDICARE, OTHER, SELFPAY ==
--- NOTE | 2023-03-31 11:49 | XR_ITS ---
FINAL REPORT CLINICAL HISTORY: #4 finger right hand bruised and swollen. COMPARISON: None FINDINGS: RIGHT HAND: Three views show no evidence of acute displaced fracture or dislocation of the visualized bony architecture. There are advanced diffuse arthritic changes most pronounced in the fourth distal interphalangeal joint and the first CMC joint. Generalized osteopenia is present. IMPRESSION: Advanced diffuse arthritic changes, most pronounced in the fourth DIP and first CMC joints. Reviewed, Interpreted and Dictated by Toy Ledezma MD Transcribed by Xin Benitez Authenticated and [facility]
== END 2023-03-31 23:59 ==
LOC: RAD 11:46
PROVIDERS: PCP Family Medicine; Visit Provider Nurse Practitioner
DX: S60.00XA Contusion of unspecified finger without damage to nail, initial encounter (principal)
CPT/HCPCS: 73130

== ENCOUNTER 2023-06-23 09:30 | Outpatient (RCR) | payer MEDICARE, OTHER, SELFPAY ==
--- NOTE | 2023-03-31 12:03 | HMH.PTOPWND ---
Rehab Outpt Wound Evaluation Rehab OP Wound Evaluation Start: 03/31/23 11:04 Freq: Status: Active Protocol: Document 03/31/23 11:49 GRECIA (Rec: 03/31/23 12:03 PHORMINDA [id number]) E-signed By Sina Le, PT Subjective/History History History This is the initial PT eval for Amirah Arroyo, 77 yowf who presents with R buttock wound x 2-3 wks with insidious onset . She has baseline dementia and all hx was provided by her shipping weigher. She spends large amounts of time in a chair during the day, but since the wound appeared, has been laying more. She has PMH of CAD with stents. No known injury preceding this wound. Subjective Subjective Pt c/o pain and tenderness intermittently, but unable to rate due to dementia. New diagnosis of cancer in past 12 No months? Wound Eval Wound Right Buttock Wound Type Pressure Ulcer Is This a Chronic Wound No Wound Staging Stage III Query Text:Stage I - Unbroken, red skin, no blanching. Stage II - Skin broken, superficial skin loss involving epidermis alone or also dermis. Partial loss of skin layers. Stage III - Pressure area involves epidermis, dermis and subcutaneous tissue, full thickness skin loss. Stage IV - Pressure area involves epidermis, subcutaneous tissue, bone and other supportive tissue. Full thickness skin loss with extensive destruction of underlying tissue and structures. Wound Length (cm) 1.2 Wound Width (cm) 2.1 Wound Depth (cm) 1.2 Wound Bed Appearance Beefy Red,Yellow Percentage Granulated (%) 50 Percentage of Slough (%) 50 Wound Margins Description Well Defined Undermining Position 9-12 o'clock Undermining Depth (cm) 2.0 Surrounding Tissue Appearance Bright Red Drainage Description Serosanguineous Drainage Amount Moderate Wound Topical Solution/Irrigant Saline Irrigant Packing Type Specialty Absorptive Comment opticell Ag Primary Dressing Composite Comment optifoam gentle SA Wound Debridement Method Gauze,Mechanical Dressing Change Patient Tolerance Tolerated Well Wound Problems/Impairments Impairments Problems/Impairmments Palpation Tenderness,Impaired Transfers,Impaired Gait Pattern,Impaired Walking, Impaired Standing,Impaired Sitting,Impaired Dressing, Impaired Shower/Bathing, Impaired Household Care,Wound Care Needs,Subjective C/O Pain ,Impaired Self Care/Self Management Prognosis Rehab Potential Fair Comment Dementia complicates all aspects of care. Clinical Impression Consistent with Diagnosis Yes Short Term Goals Number of Weeks 4 Decreased Palpation Tenderness Yes: 1/4 lashaun-wound skin Decrease Wound Area Yes: by 25% Ship Keeper Goals Number of Weeks 6-8 Decreased Palpation Tenderness Yes: 0/4 lashaun-wound skin Decrease Wound Area Yes: by 75% Outpatient Therapy Plan of Care Treatment Plan May Include Therapeutic Exercise Including Home Yes Exercise Program Manual Therapy Techniques Yes Neuromuscular Re-education Yes Therapeutic Activities to Return to Yes Previous Functional/Work Level ADL/Self Care Education Yes Wound Care Yes Eval/Re-Eval Yes Frequency Times per week 2 Duration Number of Weeks 6-8 Addendums This patient is a candidate for social No or vocational rehab? Patient/Guardian verbally acknowledges Yes understanding of treatment program and consents to further treatment? Patient/Guardian verbally acknowledges Yes understanding of diagnosis, prognosis and goals for treatment? Eval Complexity PT Charges 15696 - High Complexity PHYSICIAN CERTIFICATION: I certify the specified therapy services for Amirah Arroyo are required, authorized, and reviewed every 30 days.
--- NOTE | 2023-04-30 11:31 | HMH.RHREAS ---
Rehab Reassessment Rehab OP Re-assessment Start: 03/31/23 11:04 Freq: Status: Active Protocol: Document 04/30/23 11:27 GRECIA (Rec: 04/30/23 11:31 CASSAUSTIN [id number]) E-signed By Sina Le PT Rehab Re-assessment Subjective Subjective Pt remains tendern to palpation during dressing changes. No specific complaints most likely due to baseline dementia. Objective Objective Notes Wound appears healthy at the base, but tunnel remains open. More serosanguineous drainage , not purulent drainge. R buttock wound: L= 1.3 cm, W= 1.3 cm, D= 0.4 cm, Tunnel at 11-1 o'clock with depth of 5.0 cm. Assessment Progress Assessment Slower Than Expected Assessment Notes Wound is healing, but tunnel continues to increase it's length steadily. No purulent drainage noted now. She continues to need skilled intervention to return to prior functional status. Patient goals met none Goals Not Met ST,2 LT,2 Plan Plan Continue per initial POC. Frequency of Therapy 2 x/wk Duration of therapy 4 wks Time and Billing Re-Eval Time 11 Re-Eval Billing Units 0 PHYSICIAN CERTIFICATION: I certify the specified therapy services for Amirah Arroyo are required, authorized, and reviewed every 30 days.
--- NOTE | 2023-06-01 08:21 | HMH.RHREAS ---
Rehab Reassessment Rehab OP Re-assessment Start: 03/31/23 11:04 Freq: Status: Active Protocol: Document 06/01/23 08:17 [email or web address] (Rec: 06/01/23 08:21 PHOAUSTIN [id number]) E-signed By Sina Le, PT Rehab Re-assessment Subjective Subjective Pt reports itching around the lashaun-wound skin this date. She has no c/o pain at this time. Objective Objective Notes Wound appears healthy at the base, but tunnel remains open. Overall tunnel is decreasing in length. Less serosanguineous drainage, not purulent drainge. R buttock wound: L= 0.7 cm, W= 0.5 cm, D= 0.2 cm, Tunnel at 12 o'clock with depth of 2.0 cm. Assessment Progress Assessment Progressing as Expected Assessment Notes Wound is healing steadily, tunnel continues to decrease it's length. No purulent drainage noted now. She continues to need skilled intervention to return to prior functional status. Patient goals met ST,2 Goals Not Met LT,2 Plan Plan Continue per initial POC. Frequency of Therapy 2 x/wk Duration of therapy 4 wks Time and Billing Re-Eval Time 11 Re-Eval Billing Units 0 PHYSICIAN CERTIFICATION: I certify the specified therapy services for Amirah Arroyo are required, authorized, and reviewed every 30 days.
== END 2023-06-23 09:35 | disposition home or self-care (01) ==
LOC: PT 09:30
PROVIDERS: PCP Family Medicine; Visit Provider Family Medicine
DX: R52 Pain, unspecified (principal); S31.819A Unspecified open wound of right buttock, initial encounter
CPT/HCPCS: 97163; 97164; 97597